=== PATIENT | female | born 1950 | race Caucasian/White ===

== ENCOUNTER 2016-07-20 09:35 | Emergency (ER) | payer OTHER ==
[~2016-07-20] VITALS: Ht 154.9 cm; Wt 62.2 kg
[~2016-07-20 09:35] MED LIST: ALEN35TA23 PO; ASPI-664 PO; GLYB5TAB3 PO; METF1000 PO; OMEP40CA3 PO; SIMV20TA PO; TRAM50TA2 PO
[2016-07-20 09:45] VITALS: Ht 154.9 cm; Wt 62.2 kg
--- NOTE | 2016-07-20 11:48 | ERD ---
ER Documentation Chief Complaint Date/Time DATE: 07/20/16 TIME: 11:45 Chief Complaint HPI Patient is a 66 year old female who presents to the ED with right shoulder pain and right rib pain x 2 months. She states that she has a history of osteoporosis , arthritis and denies triggering factor or new injury. She has taken tylenol for her symptoms which has helped. She denies neck pain, neck stiffness, headache or dizziness. She denies chest pain, shortness of breath or difficulty breathing. She denies abdominal pain, nausea, vomiting, diarrhea or constipation. She denies leg pain, leg swelling or weakness. She states that when she moves her right arm up she feels pain in her shoulder. She also states that she has pain when she touches her upper back and anterior chest. Denies radiation of pain to other areas. No other complaints. ROS All systems reviewed and are negative except as per history of present illness. Medications Home Meds Active Scripts Acetaminophen* (Tylophen*) 500 Mg Capsule, 1 CAP PO Q6H Y for PAIN AND OR ELEVATED TEMP, #20 CAP Prov:APURVA ERIC PA-C 07/20/16 Reported Medications Omeprazole* (Prilosec*) 40 Mg Capsule.dr, 40 MG PO AC MEAL, CAP 04/23/14 Aspirin* (Aspirin* (EC)) 81 Mg Tablet.dr, 81 MG PO DAILY, TAB 04/23/14 Tramadol HCl (Tramadol HCl) 50 Mg Tab, 50 MG PO Q6H Y for PAIN, TAB 04/23/14 Glyburide* (Glyburide*) 5 Mg Tablet, 10 MG PO QAM W/ BREAKFAST, TAB 04/23/14 Glyburide* (Glyburide*) 5 Mg Tablet, 5 MG PO QPM W/ DINNER, TAB 04/23/14 Alendronate Sodium* (Alendronate Sodium*) 35 Mg Tablet, 35 MG PO Q7D, TAB 30 MINUTES BEFORE FOOD OR BEVERAGE 04/23/14 Simvastatin* (Zocor*) 20 Mg Tablet, 20 MG PO HS, TAB 04/23/14 Metformin Hcl* (Metformin Hcl*) 1,000 Mg Tablet, 1000 MG PO BID, TAB 04/23/14 Allergies Allergies: Coded Allergies: No Known Allergy (Unverified , 04/23/14) PMhx/Soc History of Surgery: No Anesthesia Reaction: No Hx Neurological Disorder: No Hx Respiratory Disorders: No Hx Cardiac Disorders: No Hx Psychiatric Problems: No Hx Miscellaneous Medical Probl: Yes (DM, osteoporosis.) Hx Alcohol Use: No Hx Substance Use: No Hx Tobacco Use: No Smoking Status: Never smoker FmHx Family History: No coronary disease, No diabetes, No other Physical Exam Vitals Vital Signs Date Time Temp Pulse Resp B/P Pulse Ox O2 Delivery O2 Flow Rate FiO2 07/20/16 09:45 98.1 79 20 127/63 99 Physical Exam GENERAL: Well-developed, well-nourished female. Appears in no acute distress. NECK: Supple. No lymphadenopathy or thyromegaly. No meningismus. negative kernig. negative brudinski. LUNG: Clear to auscultation bilaterally. No rhonchi, wheezing, rales or coarse breath sounds. HEART: Regular rate and rhythm. No murmurs, rubs or gallops. ABDOMEN: No scars, ecchymosis or rashes noted. Soft, nontender, and nondistended. Positive bowel sounds in all four quadrants. No rebound tenderness , no guarding. (-) McBurneys point tenderness. No CVA tenderness. BACK: No midline tenderness. Extremities: Equal pulses bilaterally. No peripheral clubbing, cyanosis or edema. No unilateral leg swelling. slight pain in shoulder with flexion and extension of shoulder. no defomrities, erythema, step offs or open wounds. no ecchymosis.slight tenderness to posterior upper back and anterior upper chest. no deformities, erythema, step offs. NEUROLOGIC: Alert and oriented. Moving all four extremities. 5/5 strength in all extremities. Normal speech. Steady gait. SKIN: Normal color. Warm and dry. No rashes or lesions. Capillary refill < 2 seconds Procedures/MDM ER COURSE: I kept the patient and/or family informed of laboratory and diagnostic imaging results throughout the emergency room course. IMAGING STUDIES [place] [address] Radiology Main Line: [phone] DIAGNOSTIC IMAGING REPORT Patient: FRANKLIN MAN : 1950 Age: 66 Sex: F MR #: [id number] DOS: 07/20/16 1112 Ordering MD: APURVA ERIC PA-C Location: [facility] Room/Bed: PROCEDURE: XR Chest. CLINICAL INDICATION: Chest pain. TECHNIQUE: Single frontal view. COMPARISON: None. FINDINGS: The lungs are clear. The heart size is normal. There is calcification in the aorta consistent with atherosclerosis. There is no pleural effusion. There is no pneumothorax. IMPRESSION: 1. Atherosclerosis. 2. Otherwise normal chest x-ray. RPTAT: QQ .Ethan Jain MD, Date Time Electronically viewed and signed by .Ethan Jain MD, on 07/20/2016 12:20 .R/ CC: APURVA ERIC PA-C [place] [address] Radiology Main Line: [phone] DIAGNOSTIC IMAGING REPORT Patient: FRANKLIN MAN : 1950 Age: 66 Sex: F MR #: [id number] DOS: 07/20/16 1111 Ordering MD: APURVA ERIC PA-C Location: [facility] Room/Bed: PROCEDURE: XR right Shoulder. CLINICAL INDICATION: Right shoulder pain TECHNIQUE: 3 views of the right shoulder are available for review. COMPARISON: None available FINDINGS: There is no evidence of acute fracture. There is moderate acromioclavicular and mild glenohumeral osteoarthrosis. There is a subacromial enthesophyte. There are enthesopathic changes at the greater tuberosity. Visualized right lung is clear. The soft tissues are grossly unremarkable. IMPRESSION: 1. No radiographic evidence of acute osseous abnormality. 2. Moderate acromioclavicular and mild glenohumeral osteoarthrosis with a subacromial enthesophyte and enthesopathic changes at the greater tuberosity. RPTAT: UU .Hay Ibrahim MD, MD Date Time Electronically viewed and signed by .Hay Ibrahim MD, MD on 07/20/2016 12: 10 .K/ CC: APURVA ERIC PA-C MEDICAL DECISION MAKING: This is a 66 year old female who presents with shoulder pain and rib pain and back pain for multiple months Vital signs were reviewed. Patient is afebrile. Patient is not hypoxic. Patient is not toxic or ill-appearing. Patient likely has osteoarthritis of her shoulder and back. X-ray is read by radiologist unremarkable for dislocation or fracture. Low suspicion for cauda equine syndrome, spinal epidural hematoma, spinal epidural abscess, osteomyelitis, fracture, aortic dissection, AAA, pyelonephritis, nephrolithiasis, septic stone , obstructed stone. Low suspicion for ACS, PE, AAA, dissection, DVT. Patient does not have chest pain, shortness of breath or difficulty breathing. Her pain is elicited on exam and tender to palpation on her anterior chest as well as her back. Slight tenderness with range of motion and right shoulder. Low suspicion for dislocation, fracture, septic joint, compartment syndrome, osteomyelitis, cellulitis, avascular necrosis, neurological injury, vascular injury, tendon laceration. DISCHARGE: At this time, patient is stable for discharge and outpatient management with no new complaints during the ER course. Patient was sent home with Tylenol and copies of her x-ray reports and to follow-up with her primary care.. Patient will be discharged home with instructions to recheck for new or worsening symptoms such as fever, nausea, weakness, LOC and to follow up with primary care in the next 1-2 days. Patient was advised to return to the ER for any new or worsening symptoms. Plan was discussed and patient and/or family understands and agrees. Home instructions were given. Departure Diagnosis: Primary Impression: Osteoarthritis Osteoarthritis location: unspecified site Osteoarthritis type: unspecified Qualified Code: M19.90 - Osteoarthritis, unspecified osteoarthritis type, unspecified site Additional Impression: Shoulder pain, right Chronicity: chronic Qualified Code: M25.511 - Chronic right shoulder pain Condition: Stable APURVA ERIC PA-C Jul 20, 2016 11:48
--- NOTE | 2016-07-20 12:11 | RADRPT ---
PROCEDURE: XR right Shoulder. CLINICAL INDICATION: Right shoulder pain TECHNIQUE: 3 views of the right shoulder are available for review. COMPARISON: None available FINDINGS: There is no evidence of acute fracture. There is moderate acromioclavicular and mild glenohumeral o steoarthrosis. There is a subacromial enthesophyte. There are enthesopathic changes at the greater t uberosity. Visualized right lung is clear. The soft tissues are grossly unremarkable. IMPRESSION: 1. No radiographic evidence of acute osseous abnormality. 2. Moderate acromioclavicular and mild glenohumeral osteoarthrosis with a subacromial enthesophyte a nd enthesopathic changes at the greater tuberosity. RPTAT: UU .Hay Ibrahim MD, Date Time Electronically viewed and signed by .Hay Ibrahim MD, on 07/20/2016 12:10 .K/
--- NOTE | 2016-07-20 12:20 | RADRPT ---
PROCEDURE: XR Chest. CLINICAL INDICATION: Chest pain. TECHNIQUE: Single frontal view. COMPARISON: None. FINDINGS: The lungs are clear. The heart size is normal. There is calcification in the aorta consistent with atherosclerosis. There is no pleural effusion. There is no pneumothorax. IMPRESSION: 1. Atherosclerosis. 2. Otherwise normal chest x-ray. RPTAT: QQ .Ethan Jain MD, MD Date Time Electronically viewed and signed by .Ethan Jain MD, MD on 07/20/2016 12:20 .R/
[2016-07-20] MEDS ORDERED: ACET500C5 PO (12:27)
[2016-07-20 12:35] VITALS: BP 101/59; PULSE 80; RESP 20; TEMP 98.1
== END 2016-07-20 12:35 | disposition home or self-care (01) ==
LOC: FTE 09:35
DX: M19.011 Primary osteoarthritis, right shoulder (principal); E11.9 Type 2 diabetes mellitus without complications; Z79.82 Long term (current) use of aspirin; Z79.84 Long term (current) use of oral hypoglycemic drugs
CPT/HCPCS: 71010